=== PATIENT | female | born 1965 | race Caucasian/White ===

== ENCOUNTER → 2017-01-29 | Outpatient (CLI) | payer OTHER | END | disposition home or self-care (01) | LOC: CFH 10:08 | PROVIDERS: ATTEND Family Medicine | DX: Z12.31 Encounter for screening mammogram for malignant neoplasm of breast (principal) | CPT/HCPCS: G0202 ==

== ENCOUNTER 2017-02-17 10:56 | Emergency (ER) | payer OTHER ==
[~2017-02-17] VITALS: Ht 167.6 cm; Wt 90.0 kg
[2017-02-17 11:56] LABS: HEMATOCRIT 44.9 % (34.6-47.8); HEMOGLOBIN 15.5 g/dL (11.7-16.4); WHITE BLOOD COUNT 4.3 x10^3/uL (3.4-10)
[2017-02-17 12:09] LABS: BLOOD UREA NITROGEN 12 mg/dL (7-18)
[2017-02-17 12:47] VITALS: BP 144/108
== END 2017-02-17 12:49 | disposition home or self-care (01) ==
LOC: ED 12:17
DX: I10 Essential (primary) hypertension (principal)
CPT/HCPCS: 36415; 71020; 80048; 82040; 84443; 85025; 93005; 99285

== ENCOUNTER → 2017-07-22 | Outpatient (CLI) | payer OTHER ==
[~2017-07-22] MED LIST: LIDOCAINE-MPF 1%, 2ML ONE; OMNIPAQUE 300 MG/ML, 10ML VIAL ONE; ROPivacaine/PF 0.2%, 10 ML ONE; TRIAMCINOLONE ACETONIDE 40 MG/ML, 1ML ONE
== END | disposition home or self-care (01) ==
LOC: RAD 14:48
PROVIDERS: ATTEND Orthopaedic Surgery
DX: M76.822 Posterior tibial tendinitis, left leg (principal)
CPT/HCPCS: 20605; 77002; J2795; J3301; J3490; Q9967

== ENCOUNTER → 2018-02-17 | Outpatient (CLI) | payer BC | END | disposition home or self-care (01) | LOC: CFH 07:04 | PROVIDERS: ATTEND Nurse Practitioner Family | DX: Z12.31 Encounter for screening mammogram for malignant neoplasm of breast (principal) | CPT/HCPCS: 77067 ==

== ENCOUNTER 2019-12-28 13:10 | Outpatient (CLI) | payer BC | END 2019-12-28 23:59 | disposition home or self-care (01) | LOC: CFH 13:10 | PROVIDERS: ATTEND Student in an Organized Health Care Education/Training Program | DX: Z12.31 Encounter for screening mammogram for malignant neoplasm of breast (principal) | CPT/HCPCS: 77067 ==